=== PATIENT | male | born 1980 | race Caucasian/White ===

== ENCOUNTER → 2021-09-12 12:19 | Outpatient (BNVA) | payer BC, SELFPAY | PROVIDERS: Family Provider Family Medicine; PCP Nurse Practitioner; Visit Provider Family Medicine | DX: B34.9 Viral infection, unspecified (principal) | CPT/HCPCS: 87426 ==

== ENCOUNTER 2022-02-20 09:16 | Outpatient (CLI) | payer BC, SELFPAY ==
--- NOTE | 2022-02-20 09:34 | XR_ITS ---
WS: [id number] Exam: XR hand LT min 3V* [id number] Date/Time of Exam: 02/20/2022 9:34 AM Reason For Exam: left index finger joint pain No acute fracture or dislocation. Joint structures are well preserved. No soft tissue foreign bodies. XR/XR hand LT min 3V* [id number] IMPRESSION: 1. Negative left hand.
== END 2022-02-20 09:17 | disposition home or self-care (01) ==
PROVIDERS: PCP Family Medicine; Visit Provider Clinical Nurse Specialist Adult Health
DX: M79.645 Pain in left finger(s) (principal)
CPT/HCPCS: 73130

== ENCOUNTER 2022-04-11 12:42 | Emergency (ER) | payer BC, SELFPAY ==
[2022-04-11 12:47] VITALS: BP 146/90; PULSE 79; RESP 13; TEMP 37.1; O2SAT 98
--- NOTE | 2022-04-11 13:14 | ED_ITS ---
HPI - Animal Bite General: Chief Complaint: Skin/Abscess/Foreign Body Stated Complaint: cat bite left forearm Time Seen by Provider: 04/11/22 13:07 Source: patient Mode of arrival: ambulatory Limitations: no limitations History of Present Illness: Patient is a 41-year-old male presents to ED today for evaluation of a cat bite to his left wrist. Patient states he was bit by his own household pet yesterday after there was an encounter between the cat and a dog and the cat got scared and bit the patient. Cat is up-to-date on immunizations. Cat can continue to be quarantined at home. Patient has noticed swelling, pain, some redness at the bite site. Last tetanus unknown. complaint: animal bite Onset (ago): day(s) (yesterday) Animal: cat Description of animal: household pet, immunizations UTD and appeared well Mechanism: bite Location - Extremities: Left: forearm Context: animals fighting Associated symptoms: Reports no associated symptoms; Deny chills or fever(s) Related Data: Patient tetanus UTD: No Review of Systems Const: Denies: fever(s), chills, body aches, fatigue or malaise Card: Denies: chest pain Resp: Denies: dyspnea Musc: Reports: joint pain (L wrist) and joint swelling (L wrist) Neuro: Denies: numbness in extremities, weakness in extremities or sensory changes PFS ED PFSH: Medical History Anxiety Migraines Mild intermittent asthma Surgical History Hx of appendectomy Hx of tonsillectomy Social History Smoking and tobacco status: former smoker Alcohol intake: current Alcohol intake frequency: holidays/special occasions only Physical Exam Const: COMMON NORMALS: no acute distress, average body habitus, patient oriented x3, no limitations, healthy appearing, alert and well nourished Resp: COMMON NORMALS: normal respiratory effort Cardio: COMMON NORMALS: regular rate and regular rhythm RATE: regular rate RHYTHM: regular rhythm Extremity: COMMON NORMALS: full ROM and capillary refill normal GENERAL: Yes normal exam except as noted LEFT UPPER EXTREMITY: Yes wrist OTHER: pt has cat bite to dorsal radial wrist; no drainage; he does have some mild erythema/warmth present; full ROM of wrist joint although this does elicit some pain; full ROM of digits; no lymphangitis Neuro: COMMON NORMALS: patient oriented x3, moves all extremities, no focal motor deficits and no sensory deficits noted SENSORIUM/ORIENTATION: Yes alert Course Vital Signs: Vital signs: Vital Signs Temperature 98.7 F 04/11/22 12:47 Pulse Rate 79 04/11/22 12:47 Respiratory Rate 13 04/11/22 12:47 Blood Pressure 146/90 04/11/22 12:47 Pulse Oximetry 98 04/11/22 12:47 Oxygen Delivery Me thod 04/11/22 12:47 MDM - Animal Bite Medical Decision Making Patient was given IM Unasyn here for bacterial coverage of his cat bite. He will be placed on Augmentin at home (patient does have penicillins listed as an allergy but he tells me he is not allergic). Strict return ED precautions given if area does not begin improving over the next 24 to 48 hours. Tetanus updated. XR showing edema-no fbs. Differential Diagnosis Likely cat bite Lab Data Radiology Impressions Wrist X-Ray 04/11/22 13:36 IMPRESSION: Soft tissue edema most consistent with cellulitis along the dorsal wrist. Discharge Plan Discharge Patient Disposition: Home Clinical Impression: Cat bite of left wrist with infection Qualifiers: Encounter type: initial encounter Qualified Code(s): S61.552A - Open bite of left wrist, initial encounter Condition: Stable Prescriptions: New hydrocodone-acetaminophen 5-325 mg tablet 1 tab PO Q6H PRN (Reason: pain) Qty: 14 0RF amoxicillin-pot clavulanate 875-125 mg tablet 1 tab PO BID Qty: 14 0RF No Action prednisone 20 mg tablet 20 mg PO DAILY Qty: 5 0RF albuterol sulfate 90 mcg/actuation HFA aerosol inhaler 2 puff inhalation Q4H PRN sumatriptan succinate [Imitrex] 100 mg tablet 100 mg PO Q2H PRN Rx Instructions: 1/2 tab q2h prn- limit 2 tabs per 24 hour. escitalopram oxalate [Lexapro] 10 mg tablet 10 mg PO DAILY Qty: 30 11RF budesonide-formoterol 160-4.5 mcg/actuation HFA aerosol inhaler 1 puff inhalation BID Qty: 10.2 11RF benzonatate 100 mg capsule 100 mg PO TID PRN (Reason: cough) Qty: 45 0RF promethazine-DM 6.25-15 mg/5 mL syrup 5 ml PO Q6H PRN (Reason: cough) Qty: 118 0RF azithromycin 250 mg tablet See Rx Instructions PO .COMPLEX Qty: 6 0RF Rx Instructions: For 250 mg dose pack: take 500 mg today (day 1), then 250 mg for 4 days (days 2-5) PO Discharge Orders: Discharge ED (Routine); Ordered 04/11/22 Ordered By: Corinne Chase Referrals: Wes Parish MD [Primary Care Provider] - Patient Instructions: Animal Bite (ED), Opioid Safety, Pain Management Activity Restrictions/Additional Instructions: You need to fill your antibiotics and begin taking them immediately. You need to seek medical reevaluation in 24 to 48 hours if redness, swelling, pain continues to increase, if you begin noticing severe pain with movement of your wrist/hand/fingers, or if you begin noticing red streaking up your arm, fevers of greater than 100.4, generally feeling unwell or ill, or any other concerns you may have. Coding Level of Care Code ED [employer] Operator for Nydia Sandoval
--- NOTE | 2022-04-11 13:36 | XR_ITS ---
WS: [id number] LEFT WRIST: 3 VIEW(S) TECHNIQUE: PA, oblique and lateral. HISTORY: cat bite COMPARISON: None available. No acute fracture or dislocation. No joint space abnormality. Moderate amount of soft tissue edema surrounding the wrist. Greatest amount of edema along the dorsal wrist. No foreign body. XR/XR wrist LT min 3V* [id number] IMPRESSION: Soft tissue edema most consistent with cellulitis along the dorsal wrist.
[2022-04-11] MEDS: tetanus-dipt-pertussis 0.5 mL SDV IM (14:15)
--- NOTE | 2022-04-11 14:17 | PC.NURSE ---
Patient stated that something was wrong. This nurse rechecked his temp and infromed Corinne (CESARIO).
[2022-04-11 14:18] VITALS: TEMP 36.9
[2022-04-11] MEDS: ondansetron 4 MG Tablet PO (14:20)
== END 2022-04-11 14:22 | disposition home or self-care (01) ==
PROVIDERS: Emergency Provider Physician Assistant; PCP Family Medicine
DX: S61.552A Open bite of left wrist, initial encounter (principal); W55.01XA Bitten by cat, initial encounter; Z87.891 Personal history of nicotine dependence; Z23 Encounter for immunization
CPT/HCPCS: 73110; 90471; 90715; 96372; 99284; J0295; Q0162

== ENCOUNTER → 2023-05-28 10:14 | Outpatient (BNVA) | payer BC, SELFPAY | PROVIDERS: PCP Family Medicine; Visit Provider Clinical Nurse Specialist Adult Health | DX: I10 Essential (primary) hypertension (principal) | CPT/HCPCS: 80053; 80061; 85025 ==

== ENCOUNTER 2023-07-13 08:39 | Outpatient (CLI) | payer BC, SELFPAY | END 2023-07-13 08:40 | disposition home or self-care (01) | LOC: LAB 08:40 | PROVIDERS: PCP Family Medicine; Visit Provider Family Medicine | DX: R19.8 Other specified symptoms and signs involving the digestive system and abdomen (principal) | CPT/HCPCS: 83630; 83993 ==